=== PATIENT | male | born 1990 | race Caucasian/White ===

== ENCOUNTER → 2016-06-11 | Outpatient (REF) | payer OTHER ==
[2016-06-11 13:08] LABS: % NORMAL FORMS 18 % (>=4); IMMOTILITY 45 %; NON PROGRESSIVE MOTILITY (c) 6 %; PROGRESSIVE MOTILITY (a) 49 % (>=32); SPERM# 286.1 M/Ejac (33-46); TOTAL FUNCTIONAL 49.3 M/Ejac.; TOTAL MOTILITY 55 % (>=40); TOTAL PROGRESSIVE SPERM 138.9 M/Ejac.
== END ==
LOC: M LAB REF 10:09
PROVIDERS: ATTEND Physician Assistant
DX: N46.9 Male infertility, unspecified (principal)